=== PATIENT | male | born 1980 ===

== ENCOUNTER 2023-04-22 10:52 | Emergency (ER) | payer OTHER ==
[~2023-04-22] VITALS: Ht 188 cm; Wt 106.8 kg
[2023-04-22 10:53] VITALS: TEMP 98.1
[2023-04-22] MEDS ORDERED: NS 100 ML IV SCH (11:10)
[2023-04-22] MEDS ORDERED: Iohexol 300 - 100 ML VIAL IV ONE (11:10)
[2023-04-22] MEDS ORDERED: NS 1,000 ML IV ONE (11:15)
[2023-04-22] MEDS ORDERED: Morphine 4 MG/ML VIAL IV ONE (11:15)
[2023-04-22 11:30] LABS: BASO % 0.5 % (0.0-2.0); EOS # 0.1 K/mm3 (0.0-0.7); EOS % 0.8 % (0.0-4.0); GRAN # 5.4 K/mm3 (1.4-6.5); GRAN % 68.2 % (42.2-75.2); HEMATOCRIT 46.6 % (42.0-52.0); HEMOGLOBIN 15.6 g/dl (13.5-18.0); INR 0.9 (0.8-3.0); LYMPH # 1.9 K/mm3 (1.2-3.4); LYMPH % 23.8 % (20.0-51.0); MEAN CELL VOLUME 93 fl (80.0-100.0); MEAN CORPUSCULAR HEMOGLOBIN 31 pg (27-31); MEAN CORPUSCULAR HGB CONC 34 g/dl (33.0-37.0); MEAN PLATELET VOLUME 9.2 fl (7.4-10.4); MONO # 0.5 K/mm3 (0.1-0.6); MONO % 6.1 % (1.7-9.3); PLATELET COUNT 217 K/mm3 (130-400); PROTHROMBIN TIME 10.7 SECONDS (9.7-12.8); RED BLOOD COUNT 5.03 M/mm3 (4.20-5.60); REDCELL DISTRIBUTION WIDTH-CV 13.8 % (11.5-14.5)
[2023-04-22 11:45] LABS: ALBUMIN 3.8 gm/dL (3.5-5.0); BILIRUBIN,TOTAL 0.6 mg/dL (0.2-1.2); CALCIUM 8.7 mg/dL (8.4-10.2); CREATININE, serum 1.1 mg/dL (0.72-1.25); POTASSIUM 3.7 mmol/L (3.5-4.5)
[2023-04-22 12:10] VITALS: BP 119/82; PULSE 99
[2023-04-22] MEDS ORDERED: NORCO 325 MG-51 TAB PO (12:22)
== END 2023-04-22 12:50 | disposition home or self-care (01) ==
LOC: COL.ER 10:52
PROVIDERS: Physician Assistant
DX: S42.022A Displaced fracture of shaft of left clavicle, initial encounter for closed fracture (principal); S20.212A Contusion of left front wall of thorax, initial encounter; R10.84 Generalized abdominal pain; F17.200 Nicotine dependence, unspecified, uncomplicated; Z28.310 Unvaccinated for COVID-19; V89.2XXA Person injured in unspecified motor-vehicle accident, traffic, initial encounter; Y92.410 Unspecified street and highway as the place of occurrence of the external cause
CPT/HCPCS: J2270; J7030; Q9967